=== PATIENT | male | born 1975 | race Caucasian/White ===

== ENCOUNTER → 2021-09-08 10:25 | Outpatient (BNVA) | payer MEDICARE, MEDICAID, SELFPAY | PROVIDERS: PCP Family Medicine; Visit Provider Internal Medicine | DX: R76.8 Other specified abnormal immunological findings in serum (principal); R74.01 Elevation of levels of liver transaminase levels; D50.9 Iron deficiency anemia, unspecified; Z11.59 Encounter for screening for other viral diseases; Z11.1 Encounter for screening for respiratory tuberculosis; F17.210 Nicotine dependence, cigarettes, uncomplicated | CPT/HCPCS: 36415; 72040; 72100; 72202; 73120; 80053; 82728; 83540; 86480; 86704; 86803; 87340; 99204 ==

== ENCOUNTER 2021-09-08 11:49 | Outpatient (CLI) | payer MEDICARE, MEDICAID, SELFPAY ==
--- NOTE | 2021-09-08 12:00 | XR_ITS ---
WS: [id number] XR cervical spine fl/ex [id number] REASON FOR EXAM: R76.8 - Other specified abnormal immunological findings i... FINDINGS: Straightening of the normal lordosis of the cervical spine. The C6-C7 disc space is not not visualize d on this examination due to the patient's body habitus. No significant compression deformity. There is a deformity of the odontoid which likely is a developm ental abnormality. Mild narrowing of the C5-C6 disc space with moderate anterior osteophytosis. No significant spondylolisthesis. No abnormal vertebral body movement with flexion or extension. XR/XR cervical spine fl/ex [id number] IMPRESSION: Mild degenerative spondylosis at C5-C6 as above.
--- NOTE | 2021-09-08 12:00 | XR_ITS ---
WS: [id number] XR sacroiliac jts m 3V [id number] REASON FOR EXAM: R76.8 - Other specified abnormal immunological findings i... FINDINGS: No fracture or focal bone lesion. The sacroiliac joints are well defined. No fusion or bony bridging. Minimal periarticular sclerosis. No erosions. XR/XR sacroiliac jts m 3V [id number] IMPRESSION: No findings of sacroiliitis.
--- NOTE | 2021-09-08 12:00 | XR_ITS ---
WS: [email or web address] XR hand RT 2V [id number] REASON FOR EXAM: R76.8 - Other specified abnormal immunological findings i... FINDINGS: No fracture or focal bone lesion. Joint spaces of the right hand are intact and well preserved. No soft tissue abnormality. XR/XR hand RT 2V [id number] IMPRESSION: No significant abnormality.
--- NOTE | 2021-09-08 12:00 | XR_ITS ---
WS: [email or web address] XR lumbar spine 2-3V* [id number] REASON FOR EXAM: R76.8 - Other specified abnormal immunological findings i... FINDINGS: Mild rotatory scoliosis convex left. Mild wedge-shaped compression deformities of T11-L1. Unchanged compared to 07/13/2016. Intervertebral disc spaces are relatively well preserved with mild narrowing of the L3-L4 disc space. There are small anterior osteophytes L3-L5. No significant spondylolisthesis. No spondylolysis identified. XR/XR lumbar spine 2-3V* [id number] IMPRESSION: Mild changes of degenerative spondylosis. The lumbar spine is relatively unchan ged compared to 07/13/2016.
--- NOTE | 2021-09-08 12:00 | XR_ITS ---
WS: [email or web address] XR hand LT 2V [id number] REASON FOR EXAM: R76.8 - Other specified abnormal immunological findings i... FINDINGS: Joint spaces of the left hand are intact and well preserved. No fracture or other focal bone abnormality. No soft tissue abnormality. XR/XR hand LT 2V [id number] IMPRESSION: No significant abnormality.
[2021-09-08 13:07] LABS: Alanine Aminotransferase 92 U/L (0-41); Albumin Level 4.9 g/dL (3.5-5.2); Alkaline Phosphatase 115 IU/L (40-130); Anion Gap 23.1 (5-19); Aspartate Amino Transferase 121 U/L (0-40); Blood Urea Nitrogen 8 mg/dL (6-20); Calcium 9.3 mg/dL (8.5-10.5); Carbon Dioxide 22 mmol/L (22-29); Chloride 93 mmol/L (98-107); Ferritin 267 ng/mL (30-400); Globulin 3.1 g/dL (1.3-4.6); Glucose 119 mg/dL (65-115); Iron 139 ug/dL (59-158); Osmolality Calculated 277 mOsm/kg (285-295); Potassium 4.1 mmol/L (3.5-5.1); Sodium 134 mmol/L (136-145); Total Bilirubin 0.7 mg/dL (0.15-1.2)
[2021-09-08 13:24] LABS: Hepatitis B Core AB, Total Non-Reactive (Nonreactive); Hepatitis B Surface Antigen Non-Reactive (Nonreactive); Hepatitis C Virus Antibody Non-Reactive (Nonreactive)
[2021-09-12 12:27] LABS: Quantiferon Mitogen 9.73 IU/mL; Quantiferon Nil 0.15 IU/mL; Quantiferon Plus TB1 <0.00 IU/mL; Quantiferon Plus TB2 <0.00 IU/mL; Quantiferon TB Gold NEGATIVE (NEGATIVE)
== END 2021-09-08 11:50 | disposition home or self-care (01) ==
LOC: RAD 11:58
PROVIDERS: PCP Nurse Practitioner; Visit Provider Internal Medicine
DX: R76.8 Other specified abnormal immunological findings in serum (principal); D50.9 Iron deficiency anemia, unspecified; Z11.59 Encounter for screening for other viral diseases; Z11.1 Encounter for screening for respiratory tuberculosis
CPT/HCPCS: 36415; 72040; 72100; 72202; 73120; 80053; 82728; 83540; 86480; 86704; 86803; 87340

== ENCOUNTER → 2021-09-15 10:08 | Outpatient (BNVA) | payer MEDICARE, MEDICAID, SELFPAY | PROVIDERS: PCP Nurse Practitioner; Visit Provider Internal Medicine | DX: R47.01 Aphasia (principal); M25.50 Pain in unspecified joint; M25.40 Effusion, unspecified joint; R76.8 Other specified abnormal immunological findings in serum | CPT/HCPCS: 99214 ==

== ENCOUNTER 2023-10-30 15:05 | Inpatient (IN) | payer MEDICARE, MEDICAID, SELFPAY ==
[2023-10-30 15:11] VITALS: BP 101/62; PULSE 84; RESP 16; TEMP 36.4; O2SAT 97
[2023-10-30 15:48] VITALS: BP 98/59; PULSE 74; O2SAT 95
--- NOTE | 2023-10-30 15:52 | CTR_ITS ---
PROCEDURE INFORMATION: Exam: CT Abdomen And Pelvis With Contrast Exam date and time: 10/30/2023 6:02 PM Age: 48 years old Clinical indication: Vomiting TECHNIQUE: Imaging protocol: Computed tomography of the abdomen and pelvis with contrast. Radiation optimization: All CT scans at this facility use at least one of these dose optimization techniques: automated exposure control; mA and/or kV adjustment per patient size (includes targeted exams where dose is matched to clinical indication); or iterative reconstruction. Contrast material: OMNI 350; Contrast volume: 100 ml; Contrast route: INTRAVENOUS (IV); COMPARISON: CT abdomen pelvis w con* [id number] 08/02/2019 12:33 RADIATION DOSE METRICS: Total DLP (mGy-cm): 626 FINDINGS: Liver: Focal fatty infiltration in the left liver lobe. No suspicious nodule. Gallbladder and bile ducts: Normal. No calcified stones. No ductal dilation. Pancreas: Normal. No ductal dilation. Spleen: Normal. No splenomegaly. Adrenal glands: Normal. No mass. Kidneys and ureters: Cortical lesions in both kidneys are too small to characterize but are most likely cysts. No follow-up imaging is recommended. No calculus or hydronephrosis. Stomach and bowel: Mild submucosal fatty deposition in the colon and small bowel. The colon and small bowel are otherwise unremarkable. No wall thickening or obstruction. Mild wall thickening in the stomach is most likely due to nondistention. Appendix: No evidence of appendicitis. Intraperitoneal space: Unremarkable. No free air. No significant fluid collection. Vasculature: Unremarkable. No abdominal aortic aneurysm. Lymph nodes: Unremarkable. No enlarged lymph nodes. Urinary bladder: Unremarkable as visualized. Reproductive: Unremarkable as visualized. Bones/joints: Mild degenerative changes of the spine. No acute fracture. Soft tissues: Unremarkable. CT/CT abdomen pelvis w con* [id number] IMPRESSION: 1. No acute findings. COMMENTS: Consistent with the [employer]'s Incidental Findings Committee white paper (J Am Liz Radiol 2018): Any incidental renal lesion less than 1 cm or classified as too small to characterize, or any incidental cystic renal lesion characterized as simple-appearing, is likely benign. No follow-up imaging is recommended for these lesions per consensus recommendations based on imaging criteria.
--- NOTE | 2023-10-30 15:52 | CTR_ITS ---
PROCEDURE INFORMATION: Exam: CT Neck With Contrast Exam date and time: 10/30/2023 6:02 PM Age: 48 years old Clinical indication: Dysphagia / difficulty swallowing TECHNIQUE: Imaging protocol: Computed tomography of the neck with contrast. Radiation optimization: All CT scans at this facility use at least one of these dose optimization techniques: automated exposure control; mA and/or kV adjustment per patient size (includes targeted exams where dose is matched to clinical indication); or iterative reconstruction. Contrast material: OMNI 350; Contrast volume: 75 ml; Contrast route: INTRAVENOUS (IV); COMPARISON: CT cervical spin wo con* [id number] 07/31/2017 10:26 AM RADIATION DOSE METRICS: Total DLP (mGy-cm): 168 FINDINGS: Pharynx: Unremarkable. No significant tonsillar enlargement. Larynx: Unremarkable. Epiglottis is normal. Prevertebral and retropharyngeal spaces: Unremarkable. Salivary glands: Normal. Glands are normal in size. Thyroid: Normal. No enlarged or calcified nodules. Lymph nodes: Unremarkable. No lymphadenopathy. Trachea: Visualized trachea is unremarkable. Lungs: Unremarkable as visualized. Bones/joints: Unremarkable. No acute fracture. Soft tissues: Unremarkable. No significant soft tissue swelling. CT/CT neck w con* [id number] IMPRESSION: No acute findings.
[2023-10-30] MEDS: sodium chloride 0.9% 1,000 ML 999 ML IV ×2 (16:02→19:28)
[2023-10-30] MEDS: ondansetron 2 mg/ML SDV 2 mL 4 MG IVP (16:04)
--- NOTE | 2023-10-30 16:06 | ED_ITS ---
HPI - General Adult 2 General: Chief complaint: General Medical Stated complaint: trouble eating, nausea Time Seen by Provider: 10/30/23 15:41 Source: patient Mode of arrival: ambulatory Limitations: no limitations History of Present Illness: 48-year-old male who states that he had a hard time swallowing over the last 10 days. He states he feels like things get hung up and he just spits it back up he states has not been able to tolerate much liquid he denies any pain denies any fever he is handling secretions well she has had some history of reflux but no other issues in the past. Associated symptoms: Deny chest pain, dyspnea, headache(s), nausea, rash or vomiting Review of Systems 2 Const: Denies: fever(s) or chills ENMT: Denies: throat pain or dental pain Card: Denies: chest pain Resp: Denies: dyspnea GI: Denies: abdominal pain, nausea, vomiting or diarrhea Musc: Denies: neck pain or back pain Skin/Breast: Denies: rash Neuro: Denies: headache(s) PFSH ED 2 PFSH: Social History Alcohol intake: current Alcohol intake frequency: 0-2 Drinks per Day Physical Exam 2 Const: COMMON NORMALS: no acute distress, patient oriented x3 and healthy appearing HENMT: COMMON NORMALS: normocephalic and atraumatic HEAD & SCALP: n ormocephalic and atraumatic THROAT: posterior oropharynx normal Neck/C-Spine: COMMON NORMALS: full ROM and supple Chest: COMMONS NORMALS: normal inspection of the chest Resp: COMMON NORMALS: normal respiratory effort Cardio: COMMON NORMALS: regular rate, regular rhythm and No murmurs present (Cardio) RATE: regular rate RHYTHM: regular rhythm GI: COMMON NORMALS: Normal to inspection, nondistended, normoactive bowel sounds present, Soft to palpation, non-tender and no masses PALPATION: Yes Soft to palpation Extremity: COMMON NORMALS: normal to inspection and full ROM Neuro: COMMON NORMALS: patient oriented x3, moves all extremities and no focal motor deficits Psych: COMMON NORMALS: mental status grossly normal, Normal thought process present and cooperative THOUGHT PROCESS: Normal thought process present Skin: COMMON NORMALS: no rashes or lesions noted and no wounds GENERAL SKIN EXAM: no rashes or lesions noted Course 2 Vital Signs: Vital signs: Vital Signs Temperature 97.6 F 10/30/23 15:11 Pulse Rate 71 10/30/23 18:33 Respiratory Rate 16 10/30/23 15:11 Blood Pressure 103/79 10/30/23 18:33 Pulse Oximetry 98 10/30/23 18:33 Oxygen Delivery Me thod Room Air 10/30/23 18:33 MDM - General Adult Medical Decision Making Patient presents here with difficulty swallowing he states been on for [address] of his neck no signs of obstruction here he has been in no distress he is hyponatremic with a sodium level 124 likely from dehydration he is feeling improved here after fluids I spoke to the hospitalist will admit for observation for his hyponatremia Medical Records I reviewed the patient's medical records. Lab Data I reviewed the patient's lab results. 10/30/23 15:54 10/30/23 15:54 Radiology Impressions Abdomen/Pelvis CT 10/30/23 15:52 IMPRESSION: 1. No acute findings. COMMENTS: Consistent with the [place] [employer]'s Incidental Findings Committee white paper (J Am Liz Radiol 2018): Any incidental renal lesion less than 1 cm or classified as too small to characterize, or any incidental cystic renal lesion characterized as simple-appearing, is likely benign. No follow-up imaging is recommended for these lesions per consensus recommendations based on imaging criteria. Neck CT 10/30/23 15:52 IMPRESSION: No acute findings. Laboratory Results WBC 8.52 10^3/uL (3.29-11.43) 10/30/23 15:54 RBC 3.82 10^6/uL (3.85-5.65) L 10/30/23 15:54 Hgb 13.90 g/dL (11.27-16.99) 10/30/23 15:54 Hct 37.7 % (37-53) 10/30/23 15:54 MCV 98.7 fl (82-101) 10/30/23 15:54 MCH 36.4 pg (27-33) H 10/30/23 15:54 MCHC 36.9 g/dL (30-55) 10/30/23 15:54 RDW 13.2 % (12.1-15.1) 10/30/23 15:54 Plt Count 261 10^3/cmm (157-399) 10/30/23 15:54 MPV 9.7 fL (7.4-10.4) 10/30/23 15:54 Neut % (Auto) 76.0 % 10/30/23 15:54 Lymph % (Auto) 14.4 % 10/30/23 15:54 Sierra % (Auto) 8.3 % 10/30/23 15:54 Eos % (Auto) 0.4 % 10/30/23 15:54 Baso % (Auto) 0.5 % 10/30/23 15:54 Neut # (Auto) 6.48 10^3/uL (1.8-7.7) 10/30/23 15:54 Lymph # (Auto) 1.2 10^3/uL (0.8-4.8) 10/30/23 15:54 Sierra # (Auto) 0.7 10^3/uL (0.2-0.9) 10/30/23 15:54 Eos # (Auto) 0.0 10^3/uL (0.0-0.8) 10/30/23 15:54 Baso # (Auto) 0.0 10^3/uL (0.0-0.1) 10/30/23 15:54 Nucleated RBC % (auto) 0 % 10/30/23 15:54 Nucleated RBCs # 0.0 /100WBC 10/30/23 15:54 Sodium 124 mmol/L (136-145) L 10/30/23 15:54 Potassium 3.3 mmol/L (3.5-5.1) L 10/30/23 15:54 Chloride 79 mmol/L (98-107) L 10/30/23 15:54 Carbon Dioxide 26 mmol/L (22-29) 10/30/23 15:54 Anion Gap 22.3 (5-19) H 10/30/23 15:54 BUN 18 mg/dL (6-20) 10/30/23 15:54 Creatinine 1.3 mg/dL (0.7-1.2) H 10/30/23 15:54 GFR Calculation 59.2 mL/min (90-130) L 10/30/23 15:54 Glucose 126 mg/dL (65-115) H 10/30/23 15:54 Calculated Osmolality 261 mOsm/kg (285-295) L 10/30/23 15:54 Calcium 9.8 mg/dL (8.5-10.5) 10/30/23 15:54 Magnesium 1.8 mg/dL (1.7-2.3) 10/30/23 15:54 Total Bilirubin 1.0 mg/dL (0.15-1.2) 10/30/23 15:54 AST 95 U/L (0-40) H 10/30/23 15:54 ALT 36 U/L (0-41) 10/30/23 15:54 Alkaline Phosphatase 149 U/L (40-130) H 10/30/23 15:54 Total Protein 7.5 g/dL (6.6-8.7) 10/30/23 15:54 Albumin 4.4 g/dL (3.5-5.2) 10/30/23 15:54 Globulin 3.1 g/dL (1.3-4.6) 10/30/23 15:54 Lipase 25 U/L (13-60) 10/30/23 15:54 All radiology interpretation(s) finalized by discharge Discharge Plan Discharge Patient Disposition: Placed in Observation Clinical Impression: Hyponatremia, Difficulty swallowing Condition: Stable Prescriptions: No Action lisinopril-hydrochlorothiazide 20-12.5 mg tablet 1 tab PO DAILY lamotrigine 100 mg tablet 300 mg PO QPM omeprazole 20 mg capsule,delayed release(DR/EC) 20 mg PO DAILY dextroamphetamine-amphetamine 10 mg tablet 10 mg PO .QAFTERNOON clonazepam 1 mg tablet See Rx Instructions .ROUTE .COMPLEX Rx Instructions: TAKE 0.5 (1/2) TABLET BY MOUTH THREE TIMES DAILY routinely, MAY take an additional TABLET a DAY as needed for breakthrough anxiety. Ventolin HFA 90 mcg/actuation HFA aerosol inhaler 2 puff INHALATION Q4H PRN (Reason: Shortness Of Breath) dextroamphetamine-amphetamine 30 mg capsule,extended release 24hr 30 mg PO DAILY Referrals: Dee Silverman PA [Primary Care Provider] - Coding Level of Care Code ED It Help Desk Analyst for Ángelag Janette
[2023-10-30 16:27] LABS: Alanine Aminotransferase 36 U/L (0-41); Albumin Level 4.4 g/dL (3.5-5.2); Alkaline Phosphatase 149 U/L (40-130); Aspartate Amino Transferase 95 U/L (0-40); Blood Urea Nitrogen 18 mg/dL (6-20); Calcium 9.8 mg/dL (8.5-10.5); Carbon Dioxide 26 mmol/L (22-29); Chloride 79 mmol/L (98-107); Creatinine Clr Calc Pharmacy 72.1446; Globulin 3.1 g/dL (1.3-4.6); Glomerular Filtration Rate 59.2 mL/min (90-130); Glucose 126 mg/dL (65-115); Lipase 25 U/L (13-60); Osmolality Calculated 261 mOsm/kg (285-295); Sodium 124 mmol/L (136-145); Total Protein 7.5 g/dL (6.6-8.7)
[2023-10-30 16:34] LABS: Anion Gap 22.3 (5-19); Potassium 3.3 mmol/L (3.5-5.1)
[2023-10-30 16:48] VITALS: BP 97/63; PULSE 65; O2SAT 96
[2023-10-30] MEDS: pantoprazole 40 mg SDV 80 MG IVP (16:56)
[2023-10-30] MEDS: dexamethasone 10 mg/mL INJ IVP (17:12)
[2023-10-30 17:27] VITALS: BP 98/65; PULSE 63; O2SAT 98
[2023-10-30 17:28] LABS: Magnesium 1.8 mg/dL (1.7-2.3)
[2023-10-30] MEDS: iohexol 350 mg/mL 500 mL Btl (per mL) IV (17:57)
[2023-10-30 18:26] LABS: Basophils % 0.5 %; Eosinophils % 0.4 %; Hematocrit 37.7 % (37-53); Lymphocytes # 1.2 10^3/uL (0.8-4.8); Lymphocytes % 14.4 %; Mean Corpuscular HGB Conc 36.9 g/dL (30-55); Mean Corpuscular Hemoglobin 36.4 pg (27-33); Mean Corpuscular Volume 98.7 fl (82-101); Mean Platelet Volume 9.7 fL (7.4-10.4); Monocytes # 0.7 10^3/uL (0.2-0.9); Monocytes % 8.3 %; Neutrophils # 6.48 10^3/uL (1.8-7.7); Nucleated Red Blood Cells % 0 %; Platelet Count 261 10^3/cmm (157-399); Red Blood Count 3.82 10^6/uL (3.85-5.65); Red Cell Distribution Width 13.2 % (12.1-15.1); White Blood Count 8.52 10^3/uL (3.29-11.43)
[2023-10-30 18:33] VITALS: BP 103/79; PULSE 71; O2SAT 98
[2023-10-30 19:29] VITALS: BP 101/62; PULSE 66; RESP 16; O2SAT 97
--- NOTE | 2023-10-30 20:25 | PC.NURSE ---
Report called to Emi ALLEN. All questions and concerns addressed at time of report.
[2023-10-30 21:14] VITALS: BMI 26.6
[2023-10-30 21:35] LABS: H. Pylori IgG Antibody Negative (Negative)
[2023-10-30 21:38] LABS: HIV 1 & 2 Antibody Non-Reactive (Non-Reactiv); HIV 1 & 2 Antigen Non-Reactive (Non-Reactiv)
[2023-10-30 21:40] LABS: Procalcitonin 0.27 ng/mL (0-0.5); Thyroid Stimulating Hormone 1.75 uIU/mL (0.27-4.20)
[2023-10-30] MEDS: sodium chloride 0.9% 1,000 ML 75 ML IV (22:04)
[2023-10-30] MEDS: heparin 5,000 unit/mL INJ 1 mL 5000 UNIT SUBCUT (22:07)
--- NOTE | 2023-10-30 22:30 | P.HP_ITS ---
Providers/Chief Complaint 2 Admitting Physician: Johnnie Prajapati MD Primary Care Provider: Dee Silverman Chief Complaint: trouble eating, nausea History of Present Illness Boyd Bradshaw is a 48 year old male who is presenting today with 10-12 days of worsening dysphagia. Patient states he has had no appetite, has not wanted to eat, tried some semi soft foods and liquids but throws it up. Has a h/o reflux type symptoms since 1 year. Had EGD one year ago which was unremarkable per patient. He estimates he has lost 35 pounds over the last 2 months. reports dysphagia to both solids and liquids. no family h/o GI malignancy . normal BM until 2 weeks ago when he developed diarrhea - 3 episodes per day. Review of Systems 2 General: Reports: 10 or more systems reviewed and unremarkable except in HPI and below Const: Denies: fever(s), chills or body aches Eyes: Denies: change in vision, blurry vision or photophobia ENMT: Reports: hoarseness; Denies: throat pain, enlarged tonsils, odynophagia or nasal congestion Card: Denies: chest pain, palpitations, irregular heart rhythm, edema, swelling of feet/ankles, lightheadedness, pre-syncope, dyspnea on exertion or orthopnea Resp: Denies: dyspnea, productive cough, non-productive cough, wheezing, stridor, pain on inspiration, change in phlegm color, hemoptysis or chest congestion GI: Denies: abdominal pain, nausea, vomiting, hematemesis, coffee ground emesis, dysphagia, heartburn, diarrhea, constipation, GI cramping, change in stool character, hematochezia or melena : Denies: flank pain, dysuria, urinary frequency, urinary urgency, urinary hesitancy or hematuria Musc: Denies: neck pain, back pain, extremity pain, joint swelling, joint warmth or deformity Neuro: Denies: headache(s), numbness in extremities, weakness in extremities, sensory changes, difficulty walking, frequent falls, dizziness, vertigo, behavioral changes, Slurred speech present or seizure-like activity Psych: Denies: anxiety, depression, suicidal ideation or homicidal ideation Endo: Denies: polyuria, polydipsia, tired all the time, cold intolerance or hot flashes Jose/Lymph: Denies: easy bruising or easy bleeding Medications/Allergies Home Medications Medication Instructions Recorded Confirmed Last Taken Type lamotrigine 100 mg tablet 300 mg PO QPM 09/08/21 10/30/23 10/29/23 History lisinopril 20 1 tab PO DAILY 09/08/21 10/30/23 10/27/23 History mg-hydrochlorothiazide 12.5 mg tablet omeprazole 20 mg capsule,delayed 20 mg PO DAILY 09/08/21 10/30/23 10/27/23 History release albuterol sulfate 90 mcg/actuation 2 puff inhalation Q4H PRN 10/30/23 10/30/23 Unknown History aerosol inhaler (Ventolin HFA) Shortness Of Breath clonazepam 1 mg tablet See Rx Instructions .Route .COMPLEX 10/30/23 10/30/23 10/30/23 History dextroamphetamine-amphetamine 10 10 mg PO .QAFTERNOON 10/30/23 10/30/23 Unknown History mg tablet dextroamphetamine-amphetamine ER 30 mg PO DAILY 10/30/23 10/30/23 Unknown History 30 mg 24hr capsule,extend release Allergies Allergy/AdvReac Type Severity Reaction Status Date / Time influenza virus vaccine Allergy Severe unk Verified 10/30/23 15:18 tval,purif- PFSH Acute 2 PFSH: Social History Alcohol intake: current Alcohol intake frequency: 0-2 Drinks per Day Vitals/I&O/Wt Last Vital Signs Temp 98.0 F 10/31/23 04:00 Pulse 58 L 10/31/23 04:00 Resp 18 10/31/23 04:00 BP 103/64 10/31/23 04:00 Pulse Ox 96 10/31/23 04:00 O2 Del Method Room Air 10/31/23 04:00 10/30/23 10/30/23 10/31/23 14:59 22:59 06:59 Intake Total 1999 Output Total 150 / 150 150 / 300 Balance 1850 / 1850 -150 / 1700 Weight last 48 hrs Weight 83.149 kg Weight 79.379 kg Weight 78.925 kg Physical Exam 2 Narrative: General: No acute distress, AO x3 HEENT: PERRLA, pupils bilaterally equal and reactive, pallors not present Chest: Normal vesicular breath sounds, no added sounds, equal good air entry bilaterally CVS: S1-S2 regular, no murmurs, no tachycardia, no gallops, no rubs Abdomen: Soft, nontender, no organomegaly, bowel sounds present Neuro: No focal deficits, no facial deformity, AO x3, power 5/5 in all limbs Data 10/31/23 05:37 10/30/23 15:54 Other Labs: Radiology Impressions Abdomen/Pelvis CT 10/30/23 15:52 IMPRESSION: 1. No acute findings. COMMENTS: Consistent with the [employer]'s Incidental Findings Committee white paper (J Am Liz Radiol 2018): Any incidental renal lesion less than 1 cm or classified as too small to characterize, or any incidental cystic renal lesion characterized as simple-appearing, is likely benign. No follow-up imaging is recommended for these lesions per consensus recommendations based on imaging criteria. Neck CT 10/30/23 15:52 IMPRESSION: No acute findings. Laboratory Results WBC 6.67 10^3/uL (3.29-11.43) 10/31/23 05:37 RBC 3.11 10^6/uL (3.85-5.65) L 10/31/23 05:37 Hgb 11.30 g/dL (11.27-16.99) 10/31/23 05:37 Hct 30.9 % (37-53) L 10/31/23 05:37 MCV 99.4 fl (82-101) 10/31/23 05:37 MCH 36.3 pg (27-33) H 10/31/23 05:37 MCHC 36.6 g/dL (30-55) 10/31/23 05:37 RDW 13.1 % (12.1-15.1) 10/31/23 05:37 Plt Count 231 10^3/cmm (157-399) 10/31/23 05:37 MPV 8.6 fL (7.4-10.4) 10/31/23 05:37 Neut % (Auto) 81.4 % 10/31/23 05:37 Lymph % (Auto) 13.9 % 10/31/23 05:37 Finney % (Auto) 4.0 % 10/31/23 05:37 Eos % (Auto) 0.0 % 10/31/23 05:37 Baso % (Auto) 0.1 % 10/31/23 05:37 Neut # (Auto) 5.42 10^3/uL (1.8-7.7) 10/31/23 05:37 Lymph # (Auto) 0.9 10^3/uL (0.8-4.8) 10/31/23 05:37 Finney # (Auto) 0.3 10^3/uL (0.2-0.9) 10/31/23 05:37 Eos # (Auto) 0.0 10^3/uL (0.0-0.8) 10/31/23 05:37 Baso # (Auto) 0.0 10^3/uL (0.0-0.1) 10/31/23 05:37 Nucleated RBC % (auto) 0 % 10/31/23 05:37 Nucleated RBCs # 0.0 /100WBC 10/31/23 05:37 Sodium 124 mmol/L (136-145) L 10/30/23 15:54 Potassium 3.3 mmol/L (3.5-5.1) L 10/30/23 15:54 Chloride 79 mmol/L (98-107) L 10/30/23 15:54 Carbon Dioxide 26 mmol/L (22-29) 10/30/23 15:54 Anion Gap 22.3 (5-19) H 10/30/23 15:54 BUN 18 mg/dL (6-20) 10/30/23 15:54 Creatinine 1.3 mg/dL (0.7-1.2) H 10/30/23 15:54 GFR Calculation 59.2 mL/min (90-130) L 10/30/23 15:54 Glucose 126 mg/dL (65-115) H 10/30/23 15:54 Estimat Average Glucose 114 10/31/23 05:37 Hemoglobin A1c 5.6 % (4.0-6.0) 10/31/23 05:37 Calculated Osmolality 261 mOsm/kg (285-295) L 10/30/23 15:54 Calcium 9.8 mg/dL (8.5-10.5) 10/30/23 15:54 Magnesium 1.8 mg/dL (1.7-2.3) 10/30/23 15:54 Iron Cancelled 10/30/23 15:54 TIBC Cancelled 10/30/23 15:54 % Saturation Cancelled 10/30/23 15:54 Unsat Iron Binding Cancelled 10/30/23 15:54 Total Bilirubin 1.0 mg/dL (0.15-1.2) 10/30/23 15:54 AST 95 U/L (0-40) H 10/30/23 15:54 ALT 36 U/L (0-41) 10/30/23 15:54 Alkaline Phosphatase 149 U/L (40-130) H 10/30/23 15:54 Total Protein 7.5 g/dL (6.6-8.7) 10/30/23 15:54 Albumin 4.4 g/dL (3.5-5.2) 10/30/23 15:54 Globulin 3.1 g/dL (1.3-4.6) 10/30/23 15:54 Lipase 25 U/L (13-60) 10/30/23 15:54 Vitamin B12 326 pg/mL (232-1245) 10/30/23 15:54 Procalcitonin 0.27 ng/mL (0-0.5) 10/30/23 15:54 TSH 1.75 uIU/mL (0.27-4.20) 10/30/23 15:54 Urine Color Yellow (Yellow) 10/30/23 01:19 Urine Appearance Clear (CLEAR) 10/30/23 01:19 Urine pH 8 (5-7) H 10/30/23 01:19 Ur Specific Mcdonald 1.010 (1.005-1.030) 10/30/23 01:19 Urine Protein Trace (Negative) 10/30/23 01:19 Urine Glucose (UA) Norm (Normal) 10/30/23 01:19 Urine Ketones Negative (Negative) 10/30/23 01:19 Urine Blood Neg (Negative) 10/30/23 01:19 Urine Nitrate Negative (Negative) 10/30/23 01:19 Urine Bilirubin Neg (Negative) 10/30/23 01:19 Prot Sulfosalicylic Acd Negative (Negative) 10/30/23 01:19 Urine Urobilinogen 4 mg/dL (Negative) H 10/30/23 01:19 Ur Leukocyte Esterase Negative (Negative) 10/30/23 01:19 Urine RBC None /hpf (0-2) 10/30/23 01:19 Urine WBC None /hpf (0-5) 10/30/23 01:19 Ur Squamous Epith Cells None /hpf (0-5) 10/30/23 01:19 Amorphous Sediment Not Reportable 10/30/23 01:19 Urine Bacteria Trace /hpf (NONE) 10/30/23 01:19 Ur Random Sodium 26 mmol/L 10/30/23 01:19 Ur Random Potassium 24 mmol/L 10/30/23 01:19 Ur Random Chloride 27 mmol/L 10/30/23 01:19 H. pylori IgG Antibody Negative (Negative) 10/30/23 15:54 HIV 1&2 Ab & HIV 1 Ag Non-reactive (Non-Reactiv) 10/30/23 15:54 HIV 1&2 Antibody Non-reactive (Non-Reactiv) 10/30/23 15:54 A&P Assessment and plan (1) Difficulty swallowing: (2) Hyponatremia: (3) Dehydration: (4) SILVIA (acute kidney injury): Plan 48-year-old male presenting to the hospital today with worsening dysphagia over the past several months, more acutely worsened over the past 10 days. Patient states food is unpalatable, he has no appetite, he has been attempting to eat some semisolid food and liquids however he vomits right after. He feels like the food is getting stuck in the middle of his chest. EGD and colonoscopy reportedly normal 1 year ago. Will obtain records from [facility] and [facility] where patient had these procedures. Reports a history of alcohol consumption 4-5 times a week. Has a past history of reflux type symptoms. Lack of appetite and vomiting leading to dehydration, hyponatremia today. IV fluid normal saline at 75 cc an hour, recheck electrolytes with morning labs needed Hold lisinopril and HCTZ. Ordered barium swallow to assess for structural abnormalities. Depending on results may need to follow-up with endoscopy. Patient does have red flag symptoms by way of weight loss, dysphagia to both solids and liquids. N.p.o. for barium swallow today. Protonix [address] neck without any gross abnormalities Attestations 2 Medical Necessity Statement*: > 2 midnight admission anticipated Coding Level of Care Code Acute Code for Chg Fwd Diagnoses Difficulty swallowing R13.10 Hyponatremia E87.1 Dehydration E86.0 SILVIA (acute kidney injury) N17.9
[2023-10-31] VITALS: BP 114/76; PULSE 71; RESP 19; TEMP 36.6; O2SAT 96
[2023-10-31] MEDS: CLONazepam 0.5 mg Tablet PO ×3 (00:03→17:12)
[2023-10-31 00:28] LABS: Vitamin B12 326 pg/mL (232-1245)
[2023-10-31 01:53] LABS: Potassium, Radom Urine 24 mmol/L; Urine Random Chloride 27 mmol/L; Urine Random Sodium 26 mmol/L
[2023-10-31 02:49] LABS: Add Urine Culture? No; Add Urine Microscopic? YES; Bacteria Urine TRACE /hpf; Bilirubin Urine Neg (Negative); Blood Urine Neg (Negative); Glucose Urine UA Norm (Normal); Ketones Urine Negative (Negative); Leukocyte Esterase Urine Negative (Negative); Nitrate Urine Negative (Negative); Protein Urine Trace (Negative); Sulfosalicylic Acid Urine Negative (Negative); Urine Appearance Clear (CLEAR); Urine Color Yellow (Yellow); Urobilinogen Urine 4 mg/dL (Negative); pH Urine 8 (5-7)
[2023-10-31 04:00] VITALS: BP 103/64; PULSE 58; RESP 18; TEMP 36.7; O2SAT 96
[2023-10-31] MEDS: pantoprazole 40 mg SDV IVP ×2 (05:53→17:13)
--- NOTE | 2023-10-31 05:57 | XR_ITS ---
WS: [id number] Portable AP upright chest, 10/31/2023 Clinical Data: post intubation Comparison: Portable chest, 06/18/2018 Findings: No nodules, masses or effusions are seen. The heart is normal. The pulmonary vascularity is not increased. No pneumonia or pneumothorax is seen. There are monitor leads on the chest wall. Impression: Negative chest.
[2023-10-31 06:36] LABS: Basophils % 0.1 %; Hematocrit 30.9 % (37-53); Lymphocytes # 0.9 10^3/uL (0.8-4.8); Lymphocytes % 13.9 %; Mean Corpuscular HGB Conc 36.6 g/dL (30-55); Mean Corpuscular Hemoglobin 36.3 pg (27-33); Mean Corpuscular Volume 99.4 fl (82-101); Mean Platelet Volume 8.6 fL (7.4-10.4); Monocytes # 0.3 10^3/uL (0.2-0.9); Neutrophils # 5.42 10^3/uL (1.8-7.7); Neutrophils % 81.4 %; Nucleated Red Blood Cells % 0 %; Platelet Count 231 10^3/cmm (157-399); Red Blood Count 3.11 10^6/uL (3.85-5.65); Red Cell Distribution Width 13.1 % (12.1-15.1); White Blood Count 6.67 10^3/uL (3.29-11.43)
[2023-10-31 06:48] LABS: Estmated Average Glucose 114; Hemoglobin A1C 5.6 % (4.0-6.0)
[2023-10-31 07:04] LABS: Alanine Aminotransferase 27 U/L (0-41); Albumin Level 3.7 g/dL (3.5-5.2); Alkaline Phosphatase 115 U/L (40-130); Anion Gap 19.2 (5-19); Aspartate Amino Transferase 51 U/L (0-40); Blood Urea Nitrogen 17 mg/dL (6-20); Calcium 8.6 mg/dL (8.5-10.5); Carbon Dioxide 25 mmol/L (22-29); Chloride 84 mmol/L (98-107); Creatinine Clr Calc Pharmacy 87.2457; Globulin 2.9 g/dL (1.3-4.6); Glomerular Filtration Rate 71.8 mL/min (90-130); Glucose 105 mg/dL (65-115); Magnesium 1.7 mg/dL (1.7-2.3); Osmolality Calculated 262 mOsm/kg (285-295); Phosphorus 3.2 mg/dL (2.5-4.5); Potassium 3.2 mmol/L (3.5-5.1); Sodium 125 mmol/L (136-145); Total Bilirubin 0.7 mg/dL (0.15-1.2); Total Protein 6.6 g/dL (6.6-8.7)
[2023-10-31 07:13] LABS: Chol HDL Ratio 5.93 mg/dL (1.0-5.00); Cholesterol 172 mg/dL (0-200); HDL Cholesterol 29 mg/dL (60-100); LDL Cholesterol Calculated 116 mg/dL (50-129); Triglycerides 137 mg/dL (0-150)
[2023-10-31 07:14] LABS: Iron 65 ug/dL (59-158); Percent Saturation 26.8 % (20-50); Total Iron Binding Capacity 242 mcg/dl; Unsaturated Iron Binding 177 ug/dL (112-347)
[2023-10-31 07:43] VITALS: BP 107/67; PULSE 58; RESP 17; TEMP 36.4; O2SAT 96
[2023-10-31] MEDS: heparin 5,000 unit/mL INJ 1 mL 5000 UNIT SUBCUT (08:21)
[2023-10-31] MEDS: lamoTRIgine 100 mg Tablet 300 MG PO (08:26)
--- NOTE | 2023-10-31 09:52 | P.DS_ITS ---
Discharge Providers Date of Admission: 10/30/23 20:02 Date of Discharge: October 31, 2023 Attending Provider at Admission: Johnnie Prajapati MD Attending Provider at Discharge: Dixie Gracia MD Primary Care Provider: Dee Silverman Diagnoses at Discharge Discharge Diagnosis (1) Difficulty swallowing: Status: Inactive (2) Hyponatremia: Status: Inactive (3) Dehydration: Status: Inactive (4) SILVIA (acute kidney injury): Status: Inactive Reason for Visit Reason for Visit: trouble eating, nausea Hospital Course Hospital Course 48-year male who present to the hospital for chief complaint of metallic taste, anorexia and vomiting. CT neck, abdomen pelvis unremarkable no signs of any mechanical compression on esophagus or stomach, GI tract anatomy unremarkable, patient is stating that he has been experiencing metallic taste, he drinks 4-5 beers 5 days a week, he thinks his nausea and vomiting is related to change of taste he has lost significant amount of weight as well, no history of cancer in the family, patient had EGD colonoscopy, colonoscopy was done at [facility] and EGD was done was Dr. Kennedy, no sign of stricture, no cancerous lesion as per the patient. Barium swallow was done during this hospitalization. I have recommended him to go see a earth science technical officer for manometric study and advised him to quit alcohol. Patient was hyponatremic required IV fluid hydration related to dehydration and poor appetite. Patient is not diabetic, liver enzymes are normal. Low on folate B12 also low normal range. TSH is normal HIV panel negative. Physical Exam Narrative: Pleasant cooperative Signs of dehydration improving Pleasant cooperative Nonfocal neuroexam S1, S2 Currently on room air Discharge Data Studies Completed and Pending Completed Studies During Hospitalization Category Date Time Status CT abdomen pelvis w con* [id number] Stat Cat Scan 10/30/23 15:[address] neck w con* [id number] Stat Cat Scan 10/30/23 15:52 Completed CXRP [XR chest 1V portable [id number]] Stat Exams 10/31/23 05:57 Completed Pending at discharge Category Date Time Status FL barium swallow modifd [id number] Routine Exams 10/30/23 20:55 Ordered Radiology Impressions Abdomen/Pelvis CT 10/30/23 15:52 IMPRESSION: 1. No acute findings. COMMENTS: Consistent with the [employer]'s Incidental Findings Committee white paper (J Am Liz Radiol 2018): Any incidental renal lesion less than 1 cm or classified as too small to characterize, or any incidental cystic renal lesion characterized as simple-appearing, is likely benign. No follow-up imaging is recommended for these lesions per consensus recommendations based on imaging criteria. Neck CT 10/30/23 15:52 IMPRESSION: No acute findings. Laboratory Results WBC 6.67 10^3/uL (3.29-11.43) 10/31/23 05:37 RBC 3.11 10^6/uL (3.85-5.65) L 10/31/23 05:37 Hgb 11.30 g/dL (11.27-16.99) 10/31/23 05:37 Hct 30.9 % (37-53) L 10/31/23 05:37 MCV 99.4 fl (82-101) 10/31/23 05:37 MCH 36.3 pg (27-33) H 10/31/23 05:37 MCHC 36.6 g/dL (30-55) 10/31/23 05:37 RDW 13.1 % (12.1-15.1) 10/31/23 05:37 Plt Count 231 10^3/cmm (157-399) 10/31/23 05:37 MPV 8.6 fL (7.4-10.4) 10/31/23 05:37 Neut % (Auto) 81.4 % 10/31/23 05:37 Lymph % (Auto) 13.9 % 10/31/23 05:37 Greenlee % (Auto) 4.0 % 10/31/23 05:37 Eos % (Auto) 0.0 % 10/31/23 05:37 Baso % (Auto) 0.1 % 10/31/23 05:37 Neut # (Auto) 5.42 10^3/uL (1.8-7.7) 10/31/23 05:37 Lymph # (Auto) 0.9 10^3/uL (0.8-4.8) 10/31/23 05:37 Greenlee # (Auto) 0.3 10^3/uL (0.2-0.9) 10/31/23 05:37 Eos # (Auto) 0.0 10^3/uL (0.0-0.8) 10/31/23 05:37 Baso # (Auto) 0.0 10^3/uL (0.0-0.1) 10/31/23 05:37 Nucleated RBC % (auto) 0 % 10/31/23 05:37 Nucleated RBCs # 0.0 /100WBC 10/31/23 05:37 Sodium 125 mmol/L (136-145) L 10/31/23 05:37 Potassium 3.2 mmol/L (3.5-5.1) L 10/31/23 05:37 Chloride 84 mmol/L (98-107) L 10/31/23 05:37 Carbon Dioxide 25 mmol/L (22-29) 10/31/23 05:37 Anion Gap 19.2 (5-19) H 10/31/23 05:37 BUN 17 mg/dL (6-20) 10/31/23 05:37 Creatinine 1.1 mg/dL (0.7-1.2) 10/31/23 05:37 GFR Calculation 71.8 mL/min (90-130) L 10/31/23 05:37 Glucose 105 mg/dL (65-115) 10/31/23 05:37 Estimat Average Glucose 114 10/31/23 05:37 Hemoglobin A1c 5.6 % (4.0-6.0) 10/31/23 05:37 Calculated Osmolality 262 mOsm/kg (285-295) L 10/31/23 05:37 Calcium 8.6 mg/dL (8.5-10.5) 10/31/23 05:37 Phosphorus 3.2 mg/dL (2.5-4.5) 10/31/23 05:37 Magnesium 1.7 mg/dL (1.7-2.3) 10/31/23 05:37 Iron 65 ug/dL (59-158) 10/31/23 05:37 TIBC 242 mcg/dl 10/31/23 05:37 % Saturation 26.8 % (20-50) 10/31/23 05:37 Unsat Iron Binding 177 ug/dL (112-347) 10/31/23 05:37 Total Bilirubin 0.7 mg/dL (0.15-1.2) 10/31/23 05:37 AST 51 U/L (0-40) H 10/31/23 05:37 ALT 27 U/L (0-41) 10/31/23 05:37 Alkaline Phosphatase 115 U/L (40-130) 10/31/23 05:37 Total Protein 6.6 g/dL (6.6-8.7) 10/31/23 05:37 Albumin 3.7 g/dL (3.5-5.2) 10/31/23 05:37 Globulin 2.9 g/dL (1.3-4.6) 10/31/23 05:37 Triglycerides 137 mg/dL (0-150) 10/31/23 05:37 Cholesterol 172 mg/dL (0-200) 10/31/23 05:37 LDL Cholesterol, Calc 116 mg/dL (50-129) 10/31/23 05:37 HDL Cholesterol 29 mg/dL (60-100) L 10/31/23 05:37 LDL/HDL Ratio 4.00 RATIO (0.00-3.22) H 10/31/23 05:37 Cholesterol/HDL Ratio 5.93 mg/dL (1.0-5.00) H 10/31/23 05:37 Lipase 25 U/L (13-60) 10/30/23 15:54 Vitamin B12 326 pg/mL (232-1245) 10/30/23 15:54 Folate 2.0 ng/mL (4.5-32.2) L 10/31/23 05:37 Procalcitonin 0.27 ng/mL (0-0.5) 10/30/23 15:54 TSH 1.75 uIU/mL (0.27-4.20) 10/30/23 15:54 Urine Color Yellow (Yellow) 10/30/23 01:19 Urine Appearance Clear (CLEAR) 10/30/23 01:19 Urine pH 8 (5-7) H 10/30/23 01:19 Ur Specific [place] 1.010 (1.005-1.030) 10/30/23 01:19 Urine Protein Trace (Negative) 10/30/23 01:19 Urine Glucose (UA) Norm (Normal) 10/30/23 01:19 Urine Ketones Negative (Negative) 10/30/23 01:19 Urine Blood Neg (Negative) 10/30/23 01:19 Urine Nitrate Negative (Negative) 10/30/23 01:19 Urine Bilirubin Neg (Negative) 10/30/23 01:19 Prot Sulfosalicylic Acd Negative (Negative) 10/30/23 01:19 Urine Urobilinogen 4 mg/dL (Negative) H 10/30/23 01:19 Ur Leukocyte Esterase Negative (Negative) 10/30/23 01:19 Urine RBC None /hpf (0-2) 10/30/23 01:19 Urine WBC None /hpf (0-5) 10/30/23 01:19 Ur Squamous Epith Cells None /hpf (0-5) 10/30/23 01:19 Amorphous Sediment Not Reportable 10/30/23 01:19 Urine Bacteria Trace /hpf (NONE) 10/30/23 01:19 Ur Random Sodium 26 mmol/L 10/30/23 01:19 Ur Random Potassium 24 mmol/L 10/30/23 01:19 Ur Random Chloride 27 mmol/L 10/30/23 01:19 H. pylori IgG Antibody Negative (Negative) 10/30/23 15:54 HIV 1&2 Ab & HIV 1 Ag Non-reactive (Non-Reactiv) 10/30/23 15:54 HIV 1&2 Antibody Non-reactive (Non-Reactiv) 10/30/23 15:54 Vitals Last Vital Signs Temp 97.6 F 10/31/23 07:43 Pulse 58 L 10/31/23 07:43 Resp 17 10/31/23 07:43 BP 107/67 10/31/23 07:43 Pulse Ox 96 10/31/23 07:43 O2 Del Method Room Air 10/31/23 07:43 Discharge Plan Discharge Patient Disposition: Home Condition: Stable Prescriptions: New sodium chloride 1,000 mg Tablet,Soluble 1,000 mg PO BID Qty: 20 0RF magnesium 200 mg tablet 200 mg PO DAILY Qty: 20 0RF cyanocobalamin (vitamin B-12) 1,000 mcg capsule 1,000 mcg PO DAILY Qty: 90 3RF folic acid 1 mg tablet 1 mg PO DAILY Qty: 90 5RF potassium chloride 20 mEq tablet extended release 20 meq PO DAILY Qty: 10 0RF Continued lisinopril-hydrochlorothiazide 20-12.5 mg tablet 1 tab PO DAILY lamotrigine 100 mg tablet 300 mg PO QPM omeprazole 20 mg capsule,delayed release(DR/EC) 20 mg PO DAILY dextroamphetamine-amphetamine 10 mg tablet 10 mg PO .QAFTERNOON clonazepam 1 mg tablet See Rx Instructions .ROUTE .COMPLEX Rx Instructions: TAKE 0.5 (1/2) TABLET BY MOUTH THREE TIMES DAILY routinely, MAY take an additional TABLET a DAY as needed for breakthrough anxiety. Ventolin HFA 90 mcg/actuation HFA aerosol inhaler 2 puff INHALATION Q4H PRN (Reason: Shortness Of Breath) dextroamphetamine-amphetamine 30 mg capsule,extended release 24hr 30 mg PO DAILY Discharge Orders: Discharge Order (Routine); Ordered 10/31/23 Ordered By: Jaida Lorenzana Referrals: Luciano Forman MD [Referring] - 1-3 days (Anorexia, nausea, dysgeusia We have notified your physician's clinic of the need for a follow-up appointment to be scheduled. If you have not heard from them within the next 2 business days, please call them directly. ) Dee Silverman PA [Primary Care Provider] - (We have notified your physician's clinic of the need for a follow-up appointment to be scheduled. If you have not heard from them within the next 2 business days, please call them directly. ) Discharge Diet: GI Soft Discharge Activity: Increase activity as tolerated Patient Instructions: Potassium Chloride (By mouth), Folic Acid (By mouth), Magnesium Oxide (By mouth), Sodium Chloride (By mouth), Dehydration (DC), Acute Kidney Injury (DC), Hyponatremia (DC), Dysphagia (ED), Opioid Safety Discharge Attestations Time Spent in Discharge Care*: greater than 30 min Quality Metrics Clinical Quality Measures [ No reported AMI, CVA or VTE this stay] Coding Level of Care Code Acute Code for Chg Fwd Diagnoses Difficulty swallowing R13.10 Hyponatremia E87.1 Dehydration E86.0 SILVIA (acute kidney injury) N17.9
--- NOTE | 2023-10-31 10:47 | FL_ITS ---
WS: [id number] Modified barium swallow, 10/31/2023 Clinical Data: Oral dysphagia Comparison: None. Fluoroscopy time: 1min [id number] # of spot films: 1 Findings: The patient had premature oral spillage. There is minimal residue in the vallecula and piriform sinus es which cleared with swallowing. There is no aspiration or penetration. The patient chewed small bit s of the moreno cracker. The barium tablet passed normally from the oral cavity into the stomach. Impression: 1. Premature oral spillage. 2. Minimal residue in vallecula and piriform sinuses which cleared with swallowing. 3. Negative for aspiration or penetration.
[2023-10-31 11:38] VITALS: BP 104/63; PULSE 69; RESP 18; TEMP 36.6; O2SAT 96
[2023-10-31] MEDS: sodium chloride 1 gm Tablet PO ×2 (13:29→17:12)
[2023-10-31 14:26] LABS: Sodium 127 mmol/L (136-145)
[2023-10-31 15:33] VITALS: BP 106/71; PULSE 63; RESP 17; TEMP 36.4; O2SAT 97
[2023-10-31 18:08] VITALS: BP 106/71; PULSE 63; RESP 17; TEMP 36.4; O2SAT 97
== END 2023-10-31 17:45 | disposition home or self-care (01) | DRG 641 ==
LOC: ER 19:16 → MEDSURG 20:57
PROVIDERS: Student in an Organized Health Care Education/Training Program; Admitting Provider Student in an Organized Health Care Education/Training Program; Emergency Provider Emergency Medicine; PCP Physician Assistant; Visit Provider Internal Medicine
DX: E87.1 Hypo-osmolality and hyponatremia (principal); N17.9 Acute kidney failure, unspecified; E86.0 Dehydration; R13.10 Dysphagia, unspecified
CPT/HCPCS: 36415; 70491; 71045; 74177; 74230; 80053; 80061; 81001; 82436; 82607; 82746; 83036; 83540; 83550; 83690; 83735; 84100; 84133; 84145; 84295; 84300; 84443; 85025; 86677; 87806; 92611; 94664; 96372; 96374; 96375; 99285; C9113; J1100; J1644; J2405; J7030; Q9967

== ENCOUNTER 2024-01-23 08:54 | Outpatient (CLI) | payer MEDICARE, MEDICAID, SELFPAY ==
--- NOTE | 2024-01-23 08:59 | FL_ITS ---
WS: [id number] Exam: FL barium swallow [id number] Date/Time of Exam: 01/23/2024 8:59 AM Reason For Exam: [id number] Fluoroscopy time: Minutes # of spot films: Oral pharyngeal phase of swallowing was normal. No sign of esophageal stricture or mass. Normal esoph ageal motility. The esophagus is not displaced. No hiatal hernia or gastroesophageal reflux identifie d. FL/FL barium swallow [id number] IMPRESSION: 1. Unremarkable esophagram.
== END 2024-01-23 08:55 | disposition home or self-care (01) ==
LOC: RAD 08:55
PROVIDERS: PCP Physician Assistant; Visit Provider Specialist
DX: R13.10 Dysphagia, unspecified (principal)
CPT/HCPCS: 74220

== ENCOUNTER 2024-01-28 09:15 | Outpatient (CLI) | payer MEDICARE, MEDICAID, SELFPAY ==
--- NOTE | 2024-01-28 09:19 | MR_ITS ---
WS: [id number] MRI LUMBAR SPINE NONCONTRAST TECHNIQUE: Sagittal T1, T2 and STIR imaging. Axial T1 and T2 imaging. CLINICAL INFORMATION: LUMBAR REGION SPINAL STENOSIS COMPARISON: MRI 2016 FINDINGS: Tiny shallow central protrusion cervical spine nuclear waste management engineer imaging at C5-6 with slight contact of the cervi naveen cord. A few tiny shallow protrusions in the mid to lower thoracic spine. L1-L2: Mild facet arthropathy. L2-L3: Mild annular bulging. Mild facet arthropathy. Mild RIGHT foraminal narrowing progressed compar ed to previous. L3-L4: Mild annular bulging. Impingement RIGHT subarticular recess and traversing RIGHT L4 nerve root progressed compared to previous. Mild facet arthropathy. Small bilateral foraminal protrusions with slight impingement on the exiting RIGHT greater than LEFT L3 nerve roots progressed compared to previ ous. L4-L5: Mild annular bulging with slight effacement of the ventral thecal sac. Mild facet arthropathy. Spinal canal and foramen are patent. L5-S1: Mild annular bulging with slight effacement of the ventral thecal sac. Mild LEFT proximal fora errol narrowing. Spinal canal and RIGHT foramen are patent. Mild facet arthropathy. Visualized pelvic bony structures: Normal. Paravertebral soft tissues: Normal. MR/MR lumbar spine wo con* [id number] IMPRESSION: 1. Mild lumbar curve. No acute compression. 2. Progressed disc bulging L3-4 with impingement RIGHT subarticular recess and traversing RIGHT L4 nerve root. 3. Small bilateral foraminal protrusions L3-4 with slight impingement on the e xiting RIGHT greater than LEFT L3 nerve roots also progressed. 4. Progressed mild RIGHT L2-3 foraminal narrowing. 5. Shallow central disc protrusion in the cervical spine on the nuclear waste management engineer imaging at C5-6 with slight contact of the cervical cord.
== END 2024-01-28 09:16 | disposition home or self-care (01) ==
LOC: RAD 09:15
PROVIDERS: PCP Physician Assistant; Visit Provider Physician Assistant
DX: M48.062 Spinal stenosis, lumbar region with neurogenic claudication (principal); M47.816 Spondylosis without myelopathy or radiculopathy, lumbar region; M51.36 Other intervertebral disc degeneration, lumbar region; M51.37 Other intervertebral disc degeneration, lumbosacral region; M48.07 Spinal stenosis, lumbosacral region; M47.817 Spondylosis without myelopathy or radiculopathy, lumbosacral region
CPT/HCPCS: 72148